=== PATIENT | female | born 1965 | race Caucasian/White ===

== ENCOUNTER 2016-09-09 07:39 | Day surgery (SDC) | payer OTHER ==
[2016-09-04 12:14] VITALS: BMI 22.8
[2016-09-09] MEDS ORDERED: PROPOFOL 20 ML ONE ×2 (07:53)
[2016-09-09] MEDS ORDERED: LIDOCAINE HCL/PF 2% SDV 5ML VIAL ONE (08:00)
[2016-09-09 13:17] VITALS: BP 124/81; PULSE 80; TEMP 98.1
== END 2016-09-09 10:20 | disposition home or self-care (01) ==
LOC: FASU-ENDO 07:39
PROVIDERS: ATTEND Internal Medicine Gastroenterology
PROC: 0DJD8ZZ Inspection of Lower Intestinal Tract, Via Natural or Artificial Opening Endoscopic (ICD-10-PCS; principal; 2016-09-09 09:22)
DX: Z12.11 Encounter for screening for malignant neoplasm of colon (principal)
CPT/HCPCS: 84703